=== PATIENT | female | born 1970 | race Caucasian/White ===

== ENCOUNTER 2017-05-27 12:12 | Emergency (ER) ==
[2017-05-27 12:18] VITALS: BP 144/96; TEMP 98.2; BMI 30.9
[2017-05-27 13:05] LABS: BASOPHILS % (AUTO) 0.4 % (0.0-3.0); EOSINOPHILS # (AUTO) 0.3 K/ul (0.0-0.7); EOSINOPHILS % (AUTO) 3.7 % (0.0-7.0); HEMATOCRIT 39.3 % (37.0-47.0); HEMOGLOBIN 13.2 g/dl (12.0-16.0); IMMATURE GRANULOCYTE % (AUTO) 0.3 % (0.0-5.0); LYMPHOCYTES % (AUTO) 40.1 (10.0-50.0); MEAN CORPUSCULAR HEMOGLOBIN 28.3 pg (27.0-31.0); MEAN CORPUSCULAR HGB CONC 33.6 (31.8-35.4); MEAN CORPUSCULAR VOLUME 84.3 fl (81.0-99.0); MONOCYTES # (AUTO) 0.5 K/uL (0.4-2.0); MONOCYTES % (AUTO) 6.3 (0-10); NEUTROPHILS # (AUTO) 3.7 K/ul (2.0-6.9); NEUTROPHILS % (AUTO) 49.2; PLATELET COUNT 206 10^3/uL (140-440); RED BLOOD COUNT 4.66 10^6/ul (4.20-5.40); WHITE BLOOD COUNT 7.49 K/ul (4.6-10.2)
--- NOTE | 2017-05-27 13:14 | CT ---
EXAM: CT chest without contrast HISTORY: Pain COMPARISON: 04/17/2015 and 05/27/2014 TECHNIQUE: CT chest performed without intravenous contrast. Coronal and sagittal reformatted images obtained. FINDINGS: Thyroid and thoracic inlet appear normal. Heart normal in size. Mild coronary calcificat ion. No pericardial effusion. Evaluation for lymphadenopathy limited without contrast. No lymphade nopathy identified. Aorta normal in caliber. Mild atherosclerosis. Visualized portion upper abdome n demonstrates no acute abnormality. Patient status post cholecystectomy. No acute abnormalities of the bones. Mild degenerative change in the spine. Central airway patent. No pleural effusion or pn eumothorax. Minimal centrilobular emphysema. Stable pulmonary nodules measuring up to 3 mm on image 24, 27, 40, consistent with benign etiology. No airspace consolidation. IMPRESSION: 1. No acute cardiopulmonary process. 2. Minimal emphysema. 3. Mild coronary calcifications and atherosclerosis.
[2017-05-27 13:26] LABS: ALBUMIN/GLOBULIN RATIO 1.21; ANION GAP 12.7; BILIRUBIN,TOTAL 0.31 mg/dL (0.00-1.20); BUN/CREATININE RATIO 29.87; CALCIUM 9.9 mg/dL (8.2-10.2); CREATININE 0.77 mg/dL (0.60-1.30); POTASSIUM 3.7 mmol/L (3.5-5.10); TOTAL PROTEIN 7.3 g/dL (6.4-8.2)
--- NOTE | 2017-05-27 13:39 | ED.PDOC ---
General ED Provider: Dr. XIANG FREITAS Chief Complaint: Back Pain Stated Complaint: BACK PAIN COUGH Time Seen by Physician: 12:17 (NO CHEST PAIN) Mode of Arrival: Walk-In Information Source: Patient Exam Limitations: No limitations Primary Care Provider: PHOENIX REINA Nursing and Triage Documentation Reviewed and Agree: Yes (SEEN WITH KAE) Musculoskeletal Complaint Exam - Back Pain Complaint/Exam Mechanism of Injury: Reports: No known trauma Onset/Duration: 3 DAYS Symptoms Are: Resolved Timing: Intermittent Episodes Lasting: Minutes Initial Severity: Mild Current Severity: None Location: Reports: Discrete Character: Reports: Aching Aggravating: Reports: Movements, Lifting, Bending, Walking, Cough Alleviating: Reports: Rest, Position Associated Signs and Symptoms: Denies: Swelling, Redness, Bruising, Fever, Weakness, Numbness, Tingling, Abdominal pain, Flank pain, Bladder incontinence, Bowel incontinence, Weight loss, Pain with weight bearing Related History: Reports: Similar episode TAD Risk Factors: Reports: Hypertension AAA Risk Factors: Reports: Hypertension Cauda Equina Risk Factors: Reports: None Epidural Abcess Risk Factors: Reports: None Related Surgical History: Reports: None Focal Tenderness: No Paraspinal Muscle Tenderness: No Paraspinal Muscle Spasm: No Scoliosis: No Lordosis: No Kyphosis: No SLR Test: Right Negative, Left Negative Hip Motion Testing Pain: Right Negative, Left Negative Focal Weakness: Present: None Focal Sensory Loss: Present: None Gait: Present: Normal Differential Diagnoses: Strain, Sprain Review of Systems - Review Of Systems Constitutional: Reports: No symptoms Eyes: Reports: No symptoms Ears, Nose, Mouth, Throat: Reports: No symptoms Respiratory: Reports: Cough Cardiac: Reports: No symptoms GI: Reports: No symptoms : Reports: No symptoms Musculoskeletal: Reports: Back pain Skin: Reports: No symptoms Neurological: Reports: No symptoms Endocrine: Reports: No symptoms Hematologic/Lymphatic: Reports: No symptoms All Other Systems: Reviewed and Negative Past Medical History - Past Medical History Previously Healthy: Yes Endocrine: Reports: None Cardiovascular: Reports: Hypertension Respiratory: Reports: Asthma Hematological: Reports: Anemia Gastrointestinal: Reports: GERD Genitourinary: Reports: None Neuro/Psych: Reports: Migraine, Anxiety, Depression, Bipolar Disorder, Other ( multiple sclerosis) Musculoskeletal: Reports: Back Pain Cancer: Reports: None Last Menstrual Period: N/A - Surgical History General Surgical History: Reports: Cholecystectomy, Tonsillectomy, Other ( hemorrhoid) - Family History Family History: Reports: Unknown - Social History Smoking Status: Current every day smoker Hx Substance Use: No Alcohol Screening: None - Immunizations Tetanus Shot up to Date: Yes Physical Exam - Physical Exam Appearance: Well-appearing, No pain distress, Well-nourished Eyes: ROBBY, EOMI, Conjunctiva clear ENT: Ears normal, Nose normal, Oropharynx normal Respiratory: Airway patent, Breath sounds clear, Breath sounds equal, Respirations nonlabored Cardiovascular: RRR, Pulses normal, No rub, No murmur GI/: Soft, Nontender, No masses, Bowel sounds normal, No Organomegaly Musculoskeletal: Normal strength, ROM intact, No edema, No calf tenderness Skin: Warm, Dry, Normal color Neurological: Sensation intact, Motor intact, Reflexes intact, Cranial nerves intact, Alert, Oriented Psychiatric: Affect appropriate, Mood appropriate Interpretation - Radiology Interpretation Radiology Interpretation By: Radiologist Radiology Results: No acute changes Critical Care Note - Critical Care Note Total Time (mins): 0 Course - Course Hematology/Chemistry: 05/27/17 12:58 05/27/17 12:58 Orders, Labs, Meds: Lab Review 05/27/17 05/27/17 12:58 12:58 WBC 7.49 RBC 4.66 Hgb 13.2 Hct 39.3 MCV 84.3 MCH 28.3 MCHC 33.6 RDW Coeff of Rakesh 13.2 Plt Count 206 Immature Gran % (Auto) 0.3 Neut % (Auto) 49.2 Lymph % (Auto) 40.1 [place] % (Auto) 6.3 Eos % (Auto) 3.7 Baso % (Auto) 0.4 Immature Gran # (Auto) 0.0 Neut # 3.7 Lymph # 3.0 [place] # 0.5 Eos # 0.3 Baso # 0.0 Sodium 143 Potassium 3.7 Chloride 107 Carbon Dioxide 27 Anion Gap 12.7 BUN 23 H Creatinine 0.77 Estimated GFR (MDRD) 81.00 BUN/Creatinine Ratio 29.87 Glucose 85 Calcium 9.9 Total Bilirubin 0.31 AST 19 ALT 12 Alkaline Phosphatase 69 Total Protein 7.3 Albumin 4.0 Globulin 3.3 Albumin/Globulin Ratio 1.21 Orders Category Date Time Status CBC W/ AUTO DIFF Stat LAB 05/27/17 12:37 Ordered COMPREHENSIVE METABOLIC PANEL Stat LAB 05/27/17 12:[address] CHEST W/O CONTRAST Stat RADS 05/27/17 12:37 Ordered Vital Signs: Temp Pulse Resp BP Pulse Ox 05/27/17 12:13 98.2 F 99 H 18 144/96 H 97 Departure - Departure Time of Disposition: 13:39 Disposition: HOME SELF-CARE Discharge Problem: Backache Instructions: Chronic Back Pain (ED) Condition: Good Pt referred to PMD for follow-up: Yes Additional Instructions: Please call your Family Physician as soon as possible to schedule a follow-up appointment. Allergies/Adverse Reactions: Allergies codeine Adverse Reaction (Verified 05/27/17 12:19) Penicillins Adverse Reaction (Verified 05/27/17 12:19) Home Medications: Ambulatory Orders 1 [No Reported Medications] 05/27/17 Disposition Discussed With: Patient
== END 2017-05-27 13:45 | disposition home or self-care (01) ==
LOC: ED 12:12
DX: M54.9 Dorsalgia, unspecified (principal); I10 Essential (primary) hypertension; R05 Cough; F17.210 Nicotine dependence, cigarettes, uncomplicated
CPT/HCPCS: 36415; 80053; 85025; 99283

== ENCOUNTER 2017-08-23 01:05 | Outpatient (CLI) | END 2017-08-23 01:06 | disposition short-term general hospital (02) | LOC: AMBL 01:05 | PROVIDERS: ATTEND Emergency Medicine | DX: R45.851 Suicidal ideations (principal) ==

== ENCOUNTER 2017-10-19 20:06 | Emergency (ER) ==
[2017-10-19 20:10] VITALS: BP 155/106; TEMP 98.1; BMI 28.3
[2017-10-19] MEDS ORDERED: NORCO 7.5-325 PO STA (21:49)
--- NOTE | 2017-10-19 22:48 | CT ---
EXAM: CT scan brain without contrast HISTORY: Fall COMPARISON: None. FINDINGS: Contiguous axial images obtained from the skull base to the convexities without contrast u tilizing 5-mm collimation. Sagittal and coronal reconstructions were imaged and reviewed. Ventricle s are midline in position and normal in size. There is mild periventricular hypodensity noted compat ible with chronic microvascular disease. The visualized paranasal sinuses and mastoid air cells are clear . The calvarium is intact IMPRESSION: No acute intracranial findings
--- NOTE | 2017-10-19 22:50 | CT ---
EXAM: CT scan thoracic spine HISTORY: Fall COMPARISON: None. FINDINGS: Contiguous axial images obtained through the thoracic spine utilizing 3-mm collimation. S agittal and coronal reconstructions were imaged and reviewed.. The vertebral bodies are normal in he ight and alignment. The facet joints are intact. Ventral spondylitic changes are seen in the mid an d lower thoracic spine. IMPRESSION: No acute findings.
--- NOTE | 2017-10-19 22:50 | CT ---
EXAM: CT scan cervical spine HISTORY: Trauma COMPARISON: None. FINDINGS: Contiguous axial images obtained through the cervical spine utilizing 2-mm collimation. S agittal and coronal reconstructions were imaged and reviewed. The vertebral bodies are normal in heig ht and alignment. The facet joints are intact. The central canal and foramen are patent throughout. IMPRESSION: No acute findings.
--- NOTE | 2017-10-19 22:51 | CT ---
EXAM: CT lumbar spine without intravenous contrast 10/19/2017. Sagittal and coronal reformatted sheron ges obtained HISTORY: Fall COMPARISON: 11/20/2015 FINDINGS: A normal lumbar lordosis is maintained. Vertebral bodies appear intact without fracture. The facet joints align normally. Chronic degenerative endplate changes. This is most prominent at the lower aspect of the thoracic sp ine. Mild facet arthropathy at the lower lumbar levels. No fracture or subluxation at any level. IMPRESSION: No acute osseous abnormality of the lumbar spine.
--- NOTE | 2017-10-19 22:52 | CT ---
The EXAM: CT scan pelvis HISTORY: Fall COMPARISON: None. FINDINGS: Contiguous axial images were obtained through the pelvis without contrast utilizing 3-mm collimation. Sagittal and coronal reconstructions were imaged reviewed. The hip joints and SI joint s are intact. The pelvic ring is intact. There is no free fluid or inflammatory changes. IMPRESSION: No acute findings.
--- NOTE | 2017-10-19 23:07 | ED.PDOC ---
General ED Provider: Dr. YRN DU-ER Chief Complaint: Fall Stated Complaint: i fell down the stairs--my neck and back hurts Time Seen by Physician: 20:10 Mode of Arrival: Walk-In Information Source: Patient Exam Limitations: No limitations Primary Care Provider: PHOENIX REINA Nursing and Triage Documentation Reviewed and Agree: Yes Reviewed sepsis parameters & appropriate labs ordered?: Yes System Inflammatory Response Syndrome: Not Applicable Sepsis Protocol: For patient's 13 years and over: Temp is 96.8 and below OR 101 and greater Pulse >90 BPM Resp >20/minute Acutely Altered Mental Status Are patient's symptoms suggestive of a new infection, such as: -Pneumonia -Skin, Soft Tissue -Endocarditis -UTI -Bone, Joint Infection -Implantable Device -Acute Abdominal Infection -Wound Infection -Meningitis -Blood Stream Catheter Infection -Unknown Musculoskeletal Complaint Exam - Back Pain Complaint/Exam Mechanism of Injury: Reports: Trauma Onset/Duration: 24 hrs Symptoms Are: Still present Timing: Constant Initial Severity: Mild Location: Reports: Discrete Character: Reports: Dull, Aching, Throbbing, Spasmodic Aggravating: Reports: Movements, Lifting, Bending, Walking Alleviating: Reports: None Focal Tenderness: Yes Paraspinal Muscle Tenderness: Yes Paraspinal Muscle Spasm: No Scoliosis: No Lordosis: No Kyphosis: No SLR Test: Right Negative, Left Negative Hip Motion Testing Pain: Right Negative, Left Negative Focal Weakness: Present: None Focal Sensory Loss: Present: None Gait: Present: Normal Differential Diagnoses: Strain, Sprain Review of Systems - Review Of Systems Constitutional: Reports: No symptoms Eyes: Reports: No symptoms Ears, Nose, Mouth, Throat: Reports: No symptoms Respiratory: Reports: No symptoms Cardiac: Reports: No symptoms GI: Reports: No symptoms : Reports: No symptoms Musculoskeletal: Reports: Back pain, Muscle pain Skin: Reports: No symptoms Neurological: Reports: No symptoms Endocrine: Reports: No symptoms Hematologic/Lymphatic: Reports: No symptoms All Other Systems: Reviewed and Negative Past Medical History - Past Medical History Previously Healthy: Yes Endocrine: Reports: None Cardiovascular: Reports: Hypertension Respiratory: Reports: Asthma Hematological: Reports: Anemia Gastrointestinal: Reports: GERD Genitourinary: Reports: None Neuro/Psych: Reports: Migraine, Anxiety, Depression, Bipolar Disorder, Other ( multiple sclerosis) Musculoskeletal: Reports: Back Pain Cancer: Reports: None Last Menstrual Period: IRREGULAR - Surgical History General Surgical History: Reports: Cholecystectomy, Tonsillectomy, Other ( hemorrhoid) - Family History Family History: Reports: Unknown - Social History Smoking Status: Current every day smoker Hx Substance Use: No Alcohol Screening: None - Immunizations Tetanus Shot up to Date: No Physical Exam - Physical Exam Appearance: Well-appearing, No pain distress, Well-nourished Pain Distress: Mild Eyes: ROBBY, EOMI, Conjunctiva clear ENT: Ears normal, Nose normal, Oropharynx normal Neck: Supple Respiratory: Airway patent, Breath sounds clear, Breath sounds equal, Respirations nonlabored Cardiovascular: RRR, Pulses normal, No rub, No murmur GI/: Soft, Nontender, No masses, Bowel sounds normal, No Organomegaly Musculoskeletal: Limited ROM Skin: Warm, Dry, Normal color Neurological: Sensation intact, Motor intact, Reflexes intact, Cranial nerves intact, Alert, Oriented Psychiatric: Affect appropriate, Mood appropriate Interpretation - Radiology Interpretation Radiology Interpretation By: Radiologist Radiology Results: Negative Exam Interpreted: CT Scan Critical Care Note - Critical Care Note Total Time (mins): 0 Course - Course Orders, Labs, Meds: Lab Review 10/19/17 20:34 Serum , Qual Negative Orders Category Date Time Status SERUM Stat LAB 10/19/17 20:34 Completed Hydrocodone Bit/Acetaminophen [[place] 7.5-325] MEDS 10/19/17 21:49 Discontinued 1 tab PO ONCE STA CT CERVICAL SPINE W/O CONTRAST Stat RADS 10/19/17 20:[address] HEAD W/O CONTRAST Stat RADS 10/19/17 20:[address] LUMBAR SPINE W/O CONTRAST Stat RADS 10/19/17 20:[address] PELVIS W/O CONTRAST Stat RADS 10/19/17 20:[address] THORACIC SPINE W/O CONTRAST Stat RADS 10/19/17 20:25 Completed Medications Discontinued Medications Generic Name Dose Route Start Last Admin Trade Name Freq PRN Reason Stop Dose Admin Hydrocodone Bitart/Acetaminophen 1 tab 10/19/17 21:49 10/19/17 21:56 [place] 7.5-325 PO 10/19/17 21:50 1 tab ONCE STA Administration Vital Signs: Temp Pulse Resp BP Pulse Ox 10/19/17 20:08 98.1 F 121 H 16 155/106 H 98 Departure - Departure Time of Disposition: 23:08 Disposition: HOME SELF-CARE Discharge Problem: Contusion Qualifiers: Encounter type: initial encounter Contusion area: lower back Qualified Code(s) : S30.0XXA - Contusion of lower back and pelvis, initial encounter Instructions: Contusion in Adults (ED) Condition: Good Pt referred to PMD for follow-up: No IPMP verified?: No Additional Instructions: norco 5mg q 6hrs prn pain #10--f/u with pcp Allergies/Adverse Reactions: Allergies codeine Adverse Reaction (Verified 10/19/17 20:10) Penicillins Adverse Reaction (Verified 10/19/17 20:10) Home Medications: Ambulatory Orders 1 [No Reported Medications] 10/19/17 Disposition Discussed With: Patient, Family
== END 2017-10-19 23:20 | disposition home or self-care (01) ==
LOC: ED 20:06
DX: S30.0XXA Contusion of lower back and pelvis, initial encounter (principal); M54.2 Cervicalgia; W10.9XXA Fall (on) (from) unspecified stairs and steps, initial encounter; F17.210 Nicotine dependence, cigarettes, uncomplicated
CPT/HCPCS: 36415; 84703; 99283

== ENCOUNTER 2017-11-11 22:57 | Emergency (ER) ==
[2017-11-11 23:17] VITALS: BP 158/97; TEMP 97.9; BMI 31.1
[2017-11-11] MEDS ORDERED: DILAUDID 2 MG/ML SYRINGE IM STA (23:17)
[2017-11-11] MEDS ORDERED: ZOFRAN 4 MG/2 ML IM STA (23:17)
--- NOTE | 2017-11-11 23:20 | ED.PDOC ---
General ED Provider: Dr. AUDELIA CINTRON Chief Complaint: Extremity Pain/Injury Stated Complaint: [place] the park 6 hrs ago, ever since hurts to walk, knee is swollen. Time Seen by Physician: 23:18 Mode of Arrival: Walk-In Information Source: Patient, Family Primary Care Provider: PHOEINX REINA Nursing and Triage Documentation Reviewed and Agree: Yes Reviewed sepsis parameters & appropriate labs ordered?: No System Inflammatory Response Syndrome: Not Applicable Sepsis Protocol: For patient's 13 years and over: Temp is 96.8 and below OR 101 and greater Pulse >90 BPM Resp >20/minute Acutely Altered Mental Status Are patient's symptoms suggestive of a new infection, such as: -Pneumonia -Skin, Soft Tissue -Endocarditis -UTI -Bone, Joint Infection -Implantable Device -Acute Abdominal Infection -Wound Infection -Meningitis -Blood Stream Catheter Infection -Unknown Musculoskeletal Complaint Exam - Knee Pain Complaint/Exam Mechanism of Injury: Reports: Trauma Symptoms Are: Still present Onset of Pain: Reports: Immediate Initial Severity: Severe Current Severity: Severe Location: Reports: Discrete Character: Reports: Aching, Throbbing Alleviating: Reports: None Aggravating: Reports: Movement, Weight bearing Associated Signs and Symptoms: Reports: Swelling, Redness. Denies: Bruising, Fever, Weakness, Numbness, Tingling Able to Bear Weight: No Septic Arthritis Risk Factors: Reports: None Gout Risk Factors: Reports: None Knee Findings: Present: Swelling, Ecchymosis, Tenderness, Limited range of motion Differential Diagnoses: Closed Fracture, Strain Review of Systems - Review Of Systems Constitutional: Reports: No symptoms Eyes: Reports: No symptoms Ears, Nose, Mouth, Throat: Reports: No symptoms Respiratory: Reports: No symptoms Cardiac: Reports: No symptoms GI: Reports: No symptoms : Reports: No symptoms Musculoskeletal: Reports: Joint pain, Joint swelling Skin: Reports: No symptoms Neurological: Reports: No symptoms Endocrine: Reports: No symptoms Hematologic/Lymphatic: Reports: No symptoms All Other Systems: Reviewed and Negative Past Medical History - Past Medical History Previously Healthy: Yes Endocrine: Reports: None Cardiovascular: Reports: Hypertension Respiratory: Reports: Asthma Hematological: Reports: Anemia Gastrointestinal: Reports: GERD Genitourinary: Reports: None Neuro/Psych: Reports: Migraine, Anxiety, Depression, Bipolar Disorder, Other ( multiple sclerosis) Musculoskeletal: Reports: Back Pain Cancer: Reports: None Last Menstrual Period: last week - Surgical History General Surgical History: Reports: Cholecystectomy, Tonsillectomy, Other ( hemorrhoid) - Family History Family History: Reports: Unknown - Social History Smoking Status: Current every day smoker Smoking Cessation Counseling Time: > 3 min - 10 min Hx Substance Use: No Alcohol Screening: Occasionally - Immunizations Tetanus Shot up to Date: Yes Physical Exam - Physical Exam Appearance: Well-appearing, Ill-appearing, No pain distress, Well-nourished Pain Distress: Moderate Eyes: ROBBY, EOMI, Conjunctiva clear ENT: Ears normal, Nose normal, Oropharynx normal Respiratory: Airway patent, Breath sounds clear, Breath sounds equal, Respirations nonlabored Cardiovascular: RRR, Pulses normal, No rub, No murmur GI/: Soft, Nontender, No masses, Bowel sounds normal, No Organomegaly Musculoskeletal: No edema, No calf tenderness, Limited ROM, Limited strength Skin: Warm, Dry, Normal color Neurological: Sensation intact, Motor intact, Reflexes intact, Cranial nerves intact, Alert, Oriented Psychiatric: Affect appropriate, Mood appropriate Interpretation - Radiology Interpretation Radiology Interpretation By: Radiologist Radiology Results: Negative Exam Interpreted: CT Scan Re-Evaluation - Re-Evaluation Time of Re-Evaluation: 01:04 Status: Improved Critical Care Note - Critical Care Note Total Time (mins): 20 Course - Course Orders, Labs, Meds: Orders Category Date Time Status Hydromorphone HCl/Pf [Dilaudid 2 mg/ml Syringe] MEDS 11/11/17 23:17 Discontinued 2 mg IM ONCE STA Ondansetron HCl/Pf [Zofran 4 mg/2 ml] MEDS 11/11/17 23:17 Discontinued 4 mg IM ONCE STA CT KNEE RIGHT WITHOUT CONTRAST Stat RADS 11/11/17 23:17 Completed Medications Discontinued Medications Generic Name Dose Route Start Last Admin Trade Name Freq PRN Reason Stop Dose Admin Hydromorphone HCl 2 mg 11/11/17 23:17 11/11/17 23:23 Dilaudid 2 Mg/Ml Syringe IM 11/11/17 23:18 2 mg ONCE STA Administration Ondansetron HCl 4 mg 11/11/17 23:17 11/11/17 23:23 Zofran 4 Mg/2 Ml IM 11/11/17 23:18 4 mg ONCE STA Administration Vital Signs: Temp Pulse Resp BP Pulse Ox 11/11/17 22:59 97.9 F 115 H 22 158/97 H 98 Departure - Departure Time of Disposition: 23:20 Disposition: HOME SELF-CARE Discharge Problem: Knee sprain Qualifiers: Encounter type: initial encounter Involved ligament of knee: other ligament Laterality: right Qualified Code(s): S83.8X1A - Sprain of other specified parts of right knee, initial encounter Instructions: Knee Sprain (DC) Condition: Stable Pt referred to PMD for follow-up: Yes IPMP verified?: No Additional Instructions: rest hot pack f/u with PMD Prescriptions: Hydrocodone/Acetaminophen [[place] 5-325 Tablet] 1 tab PO TID PRN #10 tablet PRN Reason: PAIN Allergies/Adverse Reactions: Allergies codeine Adverse Reaction (Verified 11/11/17 23:06) Penicillins Adverse Reaction (Verified 11/11/17 23:06) Home Medications: Ambulatory Orders Hydrocodone/Acetaminophen [[place] 5-325 Tablet] 1 tab PO TID PRN #10 tablet 11/12 Disposition Discussed With: Patient
--- NOTE | 2017-11-12 00:29 | CT ---
EXAM: CT of the right knee without contrast. HISTORY: Injury with pain. PROCEDURE: Contiguous axial CT images of the right knee without contrast with coronal and sagittal r eformats. FINDINGS: The bones are intact with no evidence of fracture. There is a curvilinear lucency with a sc lerotic margin through the posterior margin of the right lateral tibial plateau consistent with a nut rient foramen. The joint spaces are maintained. There is a small joint effusion. Impression: No evidence of fracture. Small joint effusion.
== END 2017-11-12 01:15 | disposition home or self-care (01) ==
LOC: ED 22:57
DX: S83.8X1A Sprain of other specified parts of right knee, initial encounter (principal); W19.XXXA Unspecified fall, initial encounter; Y92.830 Public park as the place of occurrence of the external cause; F17.210 Nicotine dependence, cigarettes, uncomplicated
CPT/HCPCS: 96372; 99283

== ENCOUNTER 2018-09-25 21:07 | Emergency (ER) ==
[2018-09-25 21:17] VITALS: TEMP 98.2; BMI 34.8
[2018-09-25] MEDS ORDERED: LOPRESSOR PO STA (21:24)
[2018-09-25] MEDS ORDERED: CATAPRES PO STA (21:24)
[2018-09-25 22:38] VITALS: BP 142/89
--- NOTE | 2018-09-25 22:47 | CT ---
Exam: CT lumbar spine without contrast History: Trauma Technique: [address] lumbar spine with multiplanar reformations FINDINGS: Lumbar spine shows normal alignment. Vertebral body height is maintained. No fracture li omi or suspicious bony lesions. Focal facet arthropathy changes and L5 S1. Remainder of the levels appear normal. The sacrum is intact. No immediate paravertebral soft tissue abnormalities. Impression: No acute lumbar abnormalities.
--- NOTE | 2018-09-25 22:49 | CT ---
EXAM: CT of the thoracic spine without contrast. HISTORY: Trauma. PROCEDURE: Contiguous axial CT images of the thoracic spine without contrast with multiplanar reform ats. FINDINGS: There is normal alignment of the thoracic vertebral bodies and facets. The vertebral body heights and intervertebral disc spaces are maintained. No evidence of fracture. There is multileve l facet arthropathy. No paravertebral soft tissue abnormality. Impression: No evidence of fracture. Normal alignment of the thoracic spine with degenerative changes as described.
--- NOTE | 2018-09-25 22:53 | CT ---
Exam: CT pelvis without contrast History: Trauma Technique: [address] bony pelvis with multiplanar reformations FINDINGS: The pelvic ring is intact. Femoral hips are intact. Minor bilateral symmetric hip osteoa rthritic change. No acute peripheral soft tissue abnormalities. Left adnexal cyst measuring 2.9 cm. Impression: No acute findings of the bony pelvis or femoral hips.
--- NOTE | 2018-09-25 22:58 | ED.PDOC ---
General ED Provider: Dr. YRN DU-ER Chief Complaint: Non-specific Complaint Stated Complaint: im hurting(see nursing notes) Time Seen by Physician: 21:10 Mode of Arrival: Walk-In Information Source: Patient Exam Limitations: No limitations Primary Care Provider: [facility] REINA Nursing and Triage Documentation Reviewed and Agree: Yes Does patient meet sepsis criteria?: No System Inflammatory Response Syndrome: Not Applicable Sepsis Protocol: For patient's 13 years and over: Temp is 96.8 and below OR 101 and greater Pulse >90 BPM Resp >20/minute Acutely Altered Mental Status Are patient's symptoms suggestive of a new infection, such as: -Pneumonia -Skin, Soft Tissue -Endocarditis -UTI -Bone, Joint Infection -Implantable Device -Acute Abdominal Infection -Wound Infection -Meningitis -Blood Stream Catheter Infection -Unknown Musculoskeletal Complaint Exam - Back Pain Complaint/Exam Mechanism of Injury: Reports: Trauma Symptoms Are: Still present Timing: Constant Initial Severity: Mild Current Severity: Mild Location: Reports: Discrete Character: Reports: Dull, Aching Aggravating: Reports: Movements, Lifting, Bending, Walking Alleviating: Reports: None Associated Signs and Symptoms: Reports: Bruising Focal Tenderness: Yes Paraspinal Muscle Tenderness: Yes Paraspinal Muscle Spasm: Yes Scoliosis: No Lordosis: No Kyphosis: No SLR Test: Right Negative, Left Negative Hip Motion Testing Pain: Right Negative, Left Negative Focal Weakness: Present: None Focal Sensory Loss: Present: None Gait: Present: Abnormal Differential Diagnoses: Fracture Review of Systems - Review Of Systems Constitutional: Reports: No symptoms Eyes: Reports: No symptoms Ears, Nose, Mouth, Throat: Reports: No symptoms Respiratory: Reports: No symptoms Cardiac: Reports: No symptoms GI: Reports: No symptoms : Reports: No symptoms Musculoskeletal: Reports: Back pain Skin: Reports: No symptoms Neurological: Reports: No symptoms Endocrine: Reports: No symptoms Hematologic/Lymphatic: Reports: No symptoms All Other Systems: Reviewed and Negative Past Medical History - Past Medical History Previously Healthy: Yes Endocrine: Reports: None Cardiovascular: Reports: Hypertension Respiratory: Reports: Asthma Hematological: Reports: Anemia Gastrointestinal: Reports: GERD Genitourinary: Reports: None Neuro/Psych: Reports: Migraine, Anxiety, Depression, Bipolar Disorder, Other ( multiple sclerosis) Musculoskeletal: Reports: Back Pain Cancer: Reports: None Last Menstrual Period: 3 months - going thru menopause - Surgical History General Surgical History: Reports: Cholecystectomy, Tonsillectomy, Other ( hemorrhoid) - Family History Family History: Reports: Unknown - Social History Smoking Status: Current every day smoker, Heavy tobacco smoker Hx Substance Use: No Alcohol Screening: Occasionally - Immunizations Tetanus Shot up to Date: Yes Physical Exam - Physical Exam Appearance: Well-appearing Pain Distress: Mild Eyes: ROBBY, EOMI, Conjunctiva clear ENT: Ears normal, Nose normal, Oropharynx normal Neck: Supple Respiratory: Airway patent, Breath sounds clear, Breath sounds equal, Respirations nonlabored Cardiovascular: RRR, Pulses normal, No rub, No murmur GI/: Soft Musculoskeletal: Normal strength, ROM intact, No edema, No calf tenderness Skin: Warm, Dry, Normal color Neurological: Sensation intact, Motor intact, Reflexes intact, Cranial nerves intact, Alert, Oriented Psychiatric: Affect appropriate, Mood appropriate Re-Evaluation - Re-Evaluation Time of Re-Evaluation: 22:57 Status: Improved Vital Signs Stable: Yes Pain Level: 2 Appearance: NAD Lungs: Clear Skin: Warm and Dry Neuro: Alert and Oriented X3 CV: RRR Additional Comments: bp 132/84 Critical Care Note - Critical Care Note Total Time (mins): 0 Course - Course Orders, Labs, Meds: Lab Review 09/25/18 21:38 Serum , Qual Negative Orders Category Date Time Status SERUM TEST [SERUM ] Stat LAB 09/25/18 21:38 Completed Clonidine HCl [Catapres] MEDS 09/25/18 21:24 Discontinued 0.1 mg PO ONCE STA Metoprolol Tartrate [Lopressor] MEDS 09/25/18 21:24 Discontinued 50 mg PO ONCE STA CT LUMBAR SPINE W/O CONTRAST Stat RADS 09/25/18 21:[address] PELVIS W/O CONTRAST Stat RADS 09/25/18 21:[address] THORACIC SPINE W/O CONTRAST Stat RADS 09/25/18 21:20 Completed Medications Discontinued Medications Generic Name Dose Route Start Last Admin Trade Name Freq PRN Reason Stop Dose Admin Clonidine 0.1 mg 09/25/18 21:24 09/25/18 21:38 Catapres PO 09/25/18 21:25 0.1 mg ONCE STA Administration Metoprolol Tartrate 50 mg 09/25/18 21:24 09/25/18 21:38 Lopressor PO 09/25/18 21:25 50 mg ONCE STA Administration Vital Signs: Temp Pulse Resp BP Pulse Ox 09/25/18 22:37 142/89 H 09/25/18 22:11 155/104 H 09/25/18 21:09 98.2 F 110 H 22 203/123 H 98 Departure - Departure Time of Disposition: 22:57 Disposition: HOME SELF-CARE Discharge Problem: Back pain Qualifiers: Back pain location: low back pain Chronicity: acute Back pain laterality: midline Sciatica presence: without sciatica Qualified Code(s): M54.5 - Low back pain Instructions: Low Back Strain (ED) Condition: Good Pt referred to PMD for follow-up: Yes IPMP verified?: No Additional Instructions: norco 7.5mg q 4hrs prn pain #12--f/u with pcp Allergies/Adverse Reactions: Allergies codeine Adverse Reaction (Verified 09/25/18 21:17) Penicillins Adverse Reaction (Verified 09/25/18 21:17) Disposition Discussed With: Patient
== END 2018-09-25 23:01 | disposition home or self-care (01) ==
LOC: ED 21:07
DX: R52 Pain, unspecified (principal); M54.5 Low back pain
CPT/HCPCS: 36415; 84703; 99283